=== PATIENT | female | born 1935 | race African-American/Black ===

== ENCOUNTER 2017-01-12 00:49 | Emergency (ER) | payer MEDICARE, OTHER ==
[~2017-01-12] VITALS: Ht 160 cm; Wt 108.0 kg
[~2017-01-12 00:49] MED LIST: ALBU8I INH; CLON.2 PO; CYCL-36 PO; FLAX100013 PO; FLUT50SP EACH NARE; HYDR-3129 PO; HYDR100T2 PO; K-TA10TA5 PO; LASI20TA PO; LOTE40TA PO; LOTR5CAP3 PO; METO50CR PO; MORP1INJ45 PO; NEUR400C PO; NITR.4 PO; RANI150T PO; RED600TA PO; REST0.05 OU; VITATAB25 PO
[2017-01-12 00:52] VITALS: BP_SYST 196; PULSE 64; RESP 16; TEMP 99; O2SAT 98
[2017-01-12] MEDS ORDERED: SODIUM CHLORIDE 0.9% FLUSH 10 ML FLUSH IVF PRN (02:45)
[2017-01-12] MEDS ORDERED: cloNIDine HCL 0.2 MG TAB PO ONE (02:45)
[2017-01-12 02:51] VITALS: RESP 18; O2SAT 98
--- NOTE | 2017-01-12 03:16 | RADRPT ---
EXAM DATE/TIME: 01/12/2017 02:53 [facility] COMPARISON: No previous studies available for comparison. INDICATIONS : Cephalgia with elevated blood pressure. RADIATION DOSE: 56.77 CTDIvol (mGy) MEDICAL HISTORY : Hypertension. Gastroesophageal reflux disease. Ulcers. SURGICAL HISTORY : None. ENCOUNTER: Initial ACUITY: 1 day PAIN SCALE: 2/10 LOCATION: cranial TECHNIQUE: Multiple contiguous axial images were obtained of the head. Using automated exposure control and adj ustment of the mA and/or kV according to patient size, radiation dose was kept as low as reasonably a chievable to obtain optimal diagnostic quality images. DICOM format image data is available electro nically for review and comparison. FINDINGS: CEREBRUM: The ventricles are normal for age. No evidence of midline shift, mass lesion, hemorrhage or acute in farction. No extra-axial fluid collections are seen. POSTERIOR FOSSA: The cerebellum and brainstem are intact. The 4th ventricle is midline. The cerebellopontine angle i s unremarkable. EXTRACRANIAL: The visualized portion of the orbits is intact. SKULL: The calvaria is intact. No evidence of skull fracture. CONCLUSION: 1. No acute intracranial abnormalities. Incidental small basal ganglia calcifications. Zion Gibbons MD on January 12, 2017 at 3:13 Board Certified Radiologist. This report was verified electronically.
[2017-01-12 03:18] LABS: AUTOMATED NEUTROPHIL # 4.5 TH/MM3 (1.8-7.7); BASOPHIL # 0.1 TH/MM3 (0-0.2); BASOPHIL % 0.8 % (0.0-2.0); EOSINOPHIL # 0.1 TH/MM3 (0-0.4); EOSINOPHIL % 1.9 % (0.0-4.0); HEMATOCRIT 38.9 % (35.0-46.0); HEMO FLAGS DIFF FINAL; LYMPH % 26.2 % (9.0-44.0); LYMPHOCYTE # 1.9 TH/MM3 (1.0-4.8); MEAN CELL VOLUME 90.3 FL (80.0-100.0); MEAN CORPUSCULAR HEMOGLOBIN 29.6 PG (27.0-34.0); MEAN CORPUSCULAR HGB CONC 32.7 % (32.0-36.0); MONO % 8.4 % (0.0-8.0); NEUT % 62.7 % (16.0-70.0); PLATELET COUNT 244 TH/MM3 (150-450); RED CELL DISTRIBUTION WIDTH 15.7 % (11.6-17.2); WHITE BLOOD COUNT 7.2 TH/MM3 (4.0-11.0)
--- NOTE | 2017-01-12 03:28 | RADRPT ---
EXAM DATE/TIME: 01/12/2017 03:06 [facility] COMPARISON: CHEST SINGLE AP, October 01, 2010, 18:13. INDICATIONS : Shortness of breath. MEDICAL HISTORY : None. SURGICAL HISTORY : None. ENCOUNTER: Initial ACUITY: 1 day PAIN SCORE: 0/10 LOCATION: Bilateral chest FINDINGS: Cardiomegaly with tortuous aorta. Basilar and dependent opacity most characteristic of atelectasis. N o significant effusion. CONCLUSION: 1. Cardiomegaly. Basilar and dependent atelectasis in the lungs. Zion Gibbons MD on January 12, 2017 at 3:26 Board Certified Radiologist. This report was verified electronically.
[2017-01-12 03:29] LABS: APTT (PATIENT) 28.9 SEC (24.3-30.1); PROTHROMBIN TIME - PATIENT 10.7 SEC (9.8-11.6)
[2017-01-12 03:34] VITALS: BP 220/80; PULSE 74; RESP 18; O2SAT 99
[2017-01-12 03:44] LABS: ANION GAP 6 MEQ/L (5-15); AST (GOT) 15 U/L (15-37); BICARBONATE 29.2 MEQ/L (21.0-32.0); BLOOD UREA NITROGEN 6 MG/DL (7-18); CHLORIDE 100 MEQ/L (98-107); GLOMERULAR FILTRATION RATE 72 ML/MIN (>89); POTASSIUM 4.1 MEQ/L (3.5-5.1); SODIUM (NA) 135 MEQ/L (136-145)
[2017-01-12 03:49] LABS: ALKALINE PHOSPHATASE 90 U/L (45-117); ALT (GPT) 16 U/L (10-53); TOTAL BILIRUBIN ADULT 0.4 MG/DL (0.2-1.0)
--- NOTE | 2017-01-12 04:20 | PD ---
HPI Chief Complaint: Hypertension Time Seen by Provider: 02:03 Travel History International Travel<30 days: No Contact w/Intl Traveler<30days: No Traveled to known affect area: No History of Present Illness HPI Patient is a 81-year-old female who comes in complaining of high blood pressure. Patient is on multiple blood pressure medications, and has had issues controlling her pressure for a long time. She says she feels pressure in her head. She denies chest pain or shortness of breath. She denies blurred vision or nausea or vomiting. She reports compliance with her medications. PFSH Past Medical History Arthritis: Yes Heart Rhythm Problems: No Cancer: No Cardiac Catheterization: No Cardiovascular Problems: Yes (ENLARGED HEART) High Cholesterol: Yes Chest Pain: Yes Congestive Heart Failure: No Cerebrovascular Accident: No Diabetes: No Diminished Hearing: No Endocrine: No Gastrointestinal Disorders: Yes ([place]) GERD: Yes Genitourinary: No Hepatitis: No Hiatal Hernia: No Hypertension: Yes Immune Disorder: No Musculoskeletal: Yes (ARTHRITIS) Neurologic: Yes (SIATIC NERVE LEFT SIDE) Psychiatric: No Reproductive: No Respiratory: Yes (ASTHMA) Seizures: No Thyroid Disease: No Ulcer: Yes Menopausal: Yes Past Surgical History AICD: No Coronary Artery Bypass Graft: No Endocrine Surgery: Yes (BILAT. KNEE REPL.) Eye Surgery: Yes (CATARACT REMOVED) Genitourinary Surgery: Yes Joint Replacement: Yes (BILAT. KNEE REPL.) Pacemaker: No Other Surgery: Yes (HEMORROID) Social History Alcohol Use: No Tobacco Use: No Substance Use: No Allergies-Medications (Allergen,Severity, Reaction): Coded Allergies: penicillin G (Verified Allergy, Severe, "BROKE OUT", 01/12/17) Reported Meds & Prescriptions Reported Meds & Active Scripts Active Reported Lotrel 5-20 mg (Amlodipine/benazepril 5-20 mg) 5 Mg/20 Mg Cap 1 Cap PO BID Vitamin D-1000 (Cholecalciferol) 1,000 Unit Tab 2,000 Unit PO DAILY Ventolin Hfa (Albuterol Sulfate) 8 Gm Aero 1 Puff INH ONCE PRN * SHAKE WELL BEFORE USE * Red Yeast Rice (Red Yeast Rice Extract) 600 Mg Tab 600 Mg PO DAILY Hydralazine HCl 100 Mg Tab 200 Mg PO Q8 Gabapentin 400 Mg Cap 400 Mg PO QID Lasix (Furosemide) 20 Mg Tab 20 Mg PO DAILY 30 Days Restasis (Cyclosporine) 0.05 % Emu 1 Drop OU DAILY Fluticasone Propionate (Nasal) 50 Mcg Spr 1 [place] EACH NARE DAILY Flax Seed Oil (Flaxseed (Linseed)) 1,000 Mg Cap 1 Cap PO DAILY Lotensin 40 mg (Benazepril HCl) 40 Mg Tab 1 Tab PO DAILY Flexeril (Cyclobenzaprine HCl) 10 Mg Tab 10 Mg PO HS Ranitidine 150 mg (Ranitidine HCl) 150 Mg Tab 1 Tab PO DAILY K-Tabs (Potassium Chloride) 10 Meq Tab 10 Meq PO DAILY Nitroglycerin Tab 0.4 Mg Sl (Nitroglycerin) 0.4 Mg Subl 0.4 Mg PO DIRECTED Morphine Sulfate ER (Morphine Sulfate) 15 Mg Tab 1 Tab PO HS Metoprolol Succinate ER 50 mg (Metoprolol Succinate) 50 Mg Tab 50 Mg PO DAILY Catapres 0.2 mg (Clonidine HCl) 0.2 Mg Tab 1 Tab PO BID [place] 10/325 (Hydrocodone-Acetaminophen 10/325) 1 Tab Tab 1 Tab PO Q8HR PRN Review of Systems Except as stated in HPI: all other systems reviewed are Neg General / Constitutional: No: Fever, Chills Eyes: No: Blurred Vision HENT: Positive: Headaches Cardiovascular: No: Chest Pain or Discomfort Respiratory: No: Shortness of Breath Gastrointestinal: No: Nausea, Vomiting Musculoskeletal: No: Edema, Pain Skin: No Rash, No Change in Pigmentation Neurologic: No: Weakness, Dizziness Physical Exam Narrative GENERAL: Awake and alert, in no acute distress. SKIN: Focused skin assessment warm/dry. HEAD: Atraumatic. Normocephalic. EYES: Pupils equal and round. No scleral icterus. Extraocular movements intact. ENT: Mucous membranes pink and moist. NECK: Trachea midline. No JVD. CARDIOVASCULAR: Regular rate and rhythm. No murmur appreciated. RESPIRATORY: No accessory muscle use. Clear to auscultation. Breath sounds equal bilaterally. GASTROINTESTINAL: Abdomen soft, non-tender, nondistended. MUSCULOSKELETAL: No obvious deformities. No clubbing. No cyanosis. No edema. NEUROLOGICAL: Awake and alert. No obvious cranial nerve deficits. Motor grossly within normal limits. Normal speech. PSYCHIATRIC: Appropriate mood and affect; insight and judgment normal. Data Data Last Documented VS Vital Signs Date Time Temp Pulse Resp B/P (MAP) Pulse Ox O2 Delivery O2 Flow Rate FiO2 01/12/17 03:34 74 18 220/80 (126) 99 Room Air 01/12/17 00:52 99.0 Orders Orders Electrocardiogram (01/12/17 02:38) Complete Blood Count With Diff (01/12/17 02:38) Comprehensive Metabolic Panel (01/12/17 02:38) Prothrombin Time / Inr (Pt) (01/12/17 02:38) Act Partial Throm Time (Ptt) (01/12/17 02:38) Troponin I (01/12/17 02:38) Chest, Single Ap (01/12/17 02:38) Ecg Monitoring (01/12/17 02:38) Bilateral Bp Monitoring (01/12/17 02:38) Iv Access Insert/Monitor (01/12/17 02:38) Oximetry (01/12/17 02:38) Sodium Chloride 0.9% Flush (Ns Flush) (01/12/17 02:45) Ct Brain W/O Iv Contrast(Rout) (01/12/17 ) Clonidine (Catapres) (01/12/17 02:45) Labs Laboratory Tests Test 01/12/17 02:42 White Blood Count 7.2 TH/MM3 Red Blood Count 4.30 MIL/MM3 Hemoglobin 12.7 GM/DL Hematocrit 38.9 % Mean Corpuscular Volume 90.3 FL Mean Corpuscular Hemoglobin 29.6 PG Mean Corpuscular Hemoglobin Concent 32.7 % Red Cell Distribution Width 15.7 % Platelet Count 244 TH/MM3 Mean Platelet Volume 8.9 FL Neutrophils (%) (Auto) 62.7 % Lymphocytes (%) (Auto) 26.2 % Monocytes (%) (Auto) 8.4 % Eosinophils (%) (Auto) 1.9 % Basophils (%) (Auto) 0.8 % Neutrophils # (Auto) 4.5 TH/MM3 Lymphocytes # (Auto) 1.9 TH/MM3 Monocytes # (Auto) 0.6 TH/MM3 Eosinophils # (Auto) 0.1 TH/MM3 Basophils # (Auto) 0.1 TH/MM3 CBC Comment DIFF FINAL Differential Comment Prothrombin Time 10.7 SEC Prothromb Time International Ratio 1.0 RATIO Activated Partial Thromboplast Time 28.9 SEC Blood Urea Nitrogen 6 MG/DL Creatinine 0.91 MG/DL Random Glucose 167 MG/DL Total Protein 7.7 GM/DL Albumin 3.2 GM/DL Calcium Level 10.2 MG/DL Alkaline Phosphatase 90 U/L Aspartate Amino Transf (AST/SGOT) 15 U/L Alanine Aminotransferase (ALT/SGPT) 16 U/L Total Bilirubin 0.4 MG/DL Sodium Level 135 MEQ/L Potassium Level 4.1 MEQ/L Chloride Level 100 MEQ/L Carbon Dioxide Level 29.2 MEQ/L Anion Gap 6 MEQ/L Estimat Glomerular Filtration Rate 72 ML/MIN Troponin I LESS THAN 0.02 NG/ML MDM Medical Decision Making Medical Screen Exam Complete: Yes Emergency Medical Condition: Yes Medical Record Reviewed: Yes Interpretation(s) ECG shows normal sinus rhythm at 70, no ST elevation or depression, normal intervals Differential Diagnosis Hypertension versus tension headache versus hypertensive urgency Narrative Course Patient is a 81-year-old female comes in complaining of high blood pressure. She has been having issues controlling her pressure for a long time. She has no symptoms of chest pain or shortness of breath. Exam shows no acute abnormalities. IV established, labs sent. Labs show no acute abnormalities. She had performed shows no acute abnormalities. Patient given clonidine. She is resting comfortably. She says she feels much better. She is advised to follow-up with her doctor as she is on multiple medications already. Advised to return to the ED as needed for any worsening symptoms. Diagnosis Primary Impression: Hypertension Qualified Codes: I10 - Essential (primary) hypertension Patient Instructions: General Instructions, Hypertension (ED) Additional Instructions: Take all of your medications as prescribed. Follow-up with her doctor. Return to the ED as needed for any worsening symptoms. Disposition: 01 DISCHARGE HOME Condition: Stable Beatriz Thompson MD Jan 12, 2017 04:20
--- NOTE | 2017-01-12 21:18 | EKG ---
Date Performed: 01/12/2017 Time Performed: 03:16:29 PTAGE: 81 years EKG: Sinus rhythm PREVIOUS TRACING : 07/29/2015 10.23 Compared to prior tracing no significant change DOCTOR: Shilpi Mares Interpretating Date/Time 01/12/2017 21:16:50
== END 2017-01-12 04:48 | disposition home or self-care (01) ==
LOC: NEPE 00:49
DX: I10 Essential (primary) hypertension (principal); R51 Headache; K21.9 Gastro-esophageal reflux disease without esophagitis; I51.7 Cardiomegaly; Z79.899 Other long term (current) drug therapy
CPT/HCPCS: 70450; 71010; 80053; 84484; 85025; 85610; 85730; 93005; 99285